=== PATIENT | female | born 1980 | race African-American/Black ===

== ENCOUNTER 2017-04-16 07:57 | Emergency (ER) | payer SELFPAY ==
[~2017-04-16] VITALS: Ht 167.6 cm; Wt 84.5 kg
[2017-04-16] MEDS ORDERED: AMPH5TAB (08:03)
[2017-04-16] MEDS ORDERED: KETOROLAC TROMETHAMINE 60 MG/2 ML VIAL IM ONE (09:00)
[2017-04-16] MEDS ORDERED: METHOCARBAMOL 500 MG TABLET PO ONE (09:00)
[2017-04-16 10:27] VITALS: BP 139/94
== END 2017-04-16 11:06 | disposition home or self-care (01) ==
LOC: EMS 07:58
DX: S13.4XXA Sprain of ligaments of cervical spine, initial encounter (principal); S39.012A Strain of muscle, fascia and tendon of lower back, initial encounter; V49.40XA Driver injured in collision with unspecified motor vehicles in traffic accident, initial encounter; Y93.89 Activity, other specified; Y92.89 Other specified places as the place of occurrence of the external cause; Y99.8 Other external cause status
CPT/HCPCS: 72040; 96372; 99284; J1885